=== PATIENT | female | born 1995 | race Caucasian/White ===

== ENCOUNTER 2017-12-27 18:31 | Observation (INO) | payer OTHER ==
[~2017-12-27] VITALS: Ht 167.6 cm; Wt 90.9 kg
[2017-12-27 20:14] VITALS: BP 101/55
[2017-12-27] MEDS ORDERED: PREN-154 PO (20:14)
[2017-12-27] MEDS ORDERED: FLUCONAZOLE 150 MG TABLET PO ONE (20:45)
== END 2017-12-27 21:35 | disposition home or self-care (01) ==
LOC: EMS 18:31 → INTOOBSV 18:45 → 4S 18:45
PROVIDERS: ADMIT Obstetrics & Gynecology; ATTEND Obstetrics & Gynecology
DX: O26.893 Other specified pregnancy related conditions, third trimester (principal); R10.30 Lower abdominal pain, unspecified; Z3A.33 33 weeks gestation of pregnancy
CPT/HCPCS: 59025; 99285; G0378